=== PATIENT | female | born 1930 | race African-American/Black ===

== ENCOUNTER 2017-02-27 11:34 | Emergency (ER) | payer MEDICARE, OTHER ==
[~2017-02-27] VITALS: Ht 157.5 cm; Wt 78.0 kg
[~2017-02-27 11:34] MED LIST: AMLO-512 PO; ASCO500 PO; ASPI-556 PO; CARV3 PO; CHL25 PO; CLOP75 PO; LOSA50TA37 PO; MULT1TAB70 PO; RALO60 PO; VITAD1000 PO; [UNRECOGNIZED DRUG - CODE] PO
[2017-02-27] MEDS ORDERED: CILO100T PO (11:58)
[2017-02-27 12:19] LABS: BASOPHILS # (AUTO) 0.02 K/uL (0.00-0.20); BASOPHILS % (AUTO) 0.8 % (0.0-2.0); EOSINOPHILS # (AUTO) 0.05 K/uL (0.00-0.70); EOSINOPHILS % (AUTO) 1.75 % (1.0-6.0); HEMATOCRIT 34.3 % (36-46); HEMOGLOBIN 11.2 g/dL (12.0-16.0); LYMPHOCYTES # (AUTO) 1.4 K/uL (1.0-4.8); LYMPHOCYTES % (AUTO) 47.9 % (22.0-44.0); MEAN CORPUSCULAR HEMOGLOBIN 27.9 pg (26.0-34.0); MEAN CORPUSCULAR HGB CONC 32.8 G/dL (31.0-37.0); MEAN CORPUSCULAR VOLUME 85 fL (80-100); MONOCYTES # (AUTO) 0.3 K/uL (0.1-1.0); MONOCYTES % (AUTO) 10.7 % (2.0-9.0); NEUTROPHILS # (AUTO) 1.1 K/uL (1.8-7.7); NEUTROPHILS % (AUTO) 38.8 % (40.0-70.0); PLATELET COUNT (AUTO) 141 K/uL (150-450); RED BLOOD CELL COUNT(AUTO) 4.02 MIL/uL (4.00-5.20); RED CELL DISTRIBUTION WIDTH 14.8 % (11.5-14.5); WHITE BLOOD COUNT (AUTO) 2.8 K/uL (4.5-11.0)
[2017-02-27 12:31] LABS: ANION GAP 11 mmol/L (8-16); CALCIUM, TOTAL 8.4 mg/dL (8.8-10.5); CARBON DIOXIDE 27 mmol/L (22-29); CHLORIDE 108 mmol/L (98-107); CREATININE 0.79 mg/dL (0.60-1.30); GLOMERULAR FILTR. RATE CALC > 60 mL/min (>60); POTASSIUM 3.5 mmol/L (3.5-5.1); SODIUM SERUM 146 mmol/L (136-145); UREA NITROGEN, BLOOD 16 mg/dL (7-18)
[2017-02-27 12:36] LABS: ALANINE AMINOTRANSFERASE 14 U/L (12-78); ASPARTATE AMINOTRANSFERASE 19 U/L (15-37); BILIRUBIN,TOTAL 0.3 mg/dL (0.1-1.0); TOTAL PROTEIN, SERUM 6.5 g/dL (6.4-8.2)
[2017-02-27 12:38] LABS: RBC MORPHOLOGY COMMENT ABNORMAL RBC MORPH
[2017-02-27 12:53] LABS: B-TYPE NATRIURETIC PEPTIDE 38 pg/mL (0-100)
[2017-02-27 13:50] LABS: GLUCOSE, URINE (UA) NEGATIVE (NEGATIVE); KETONES,URINE NEGATIVE (NEGATIVE); LEUKOCYTE ESTERASE ,URINE NEGATIVE (NEGATIVE); OCCULT BLOOD,URINE NEGATIVE (NEGATIVE); PH,URINE 5.5 (5.0-8.0); PROTEIN,URINE POS 1+ (NEGATIVE)
[2017-02-27 14:02] LABS: ADD UA MICROSCOPIC YES; APPEARANCE,URINE HAZY (CLEAR)
[2017-02-27 14:04] LABS: RBC,URINE None Seen /HPF (0-2); SQUAMOUS EPITHELIAL CELL,UR Moderate /LPF (None Seen); WBC,URINE None Seen /HPF (0-5)
[2017-02-27 14:11] VITALS: BP 152/67
== END 2017-02-27 14:32 | disposition home or self-care (01) ==
LOC: EMS 11:36
DX: R55 Syncope and collapse (principal); G45.9 Transient cerebral ischemic attack, unspecified; E86.0 Dehydration; H70.92 Unspecified mastoiditis, left ear; I10 Essential (primary) hypertension; Z88.8 Allergy status to other drugs, medicaments and biological substances; Z79.82 Long term (current) use of aspirin; Z87.891 Personal history of nicotine dependence
CPT/HCPCS: 70450; 93005; 99285; 99406

== ENCOUNTER 2017-04-20 09:19 | Emergency (ER) | payer MEDICARE, OTHER ==
[~2017-04-20] VITALS: Ht 165.1 cm; Wt 75.5 kg
[~2017-04-20 09:19] MED LIST changes: +CILO100T PO
[2017-04-20] MEDS ORDERED: SILVER SULFADIAZINE 1% 25 GM CREAM TP ONE (12:30)
[2017-04-20] MEDS ORDERED: TraMADol HCL 50 MG TABLET PO ONE (12:30)
[2017-04-20 13:30] VITALS: BP 132/86
== END 2017-04-20 13:50 | disposition home or self-care (01) ==
LOC: EMS 09:21
DX: T21.25XA Burn of second degree of buttock, initial encounter (principal); I10 Essential (primary) hypertension; Z88.8 Allergy status to other drugs, medicaments and biological substances; Z87.891 Personal history of nicotine dependence; X08.8XXA Exposure to other specified smoke, fire and flames, initial encounter; Y93.89 Activity, other specified; Y92.89 Other specified places as the place of occurrence of the external cause; Y99.8 Other external cause status
CPT/HCPCS: 16020; 99284

== ENCOUNTER → 2017-05-02 | Outpatient (CLI) | payer MEDICARE, OTHER ==
[~2017-05-02] VITALS: Ht 166.4 cm; Wt 76.6 kg
[~2017-05-02] MED LIST changes: +ACET325T47 PO; +BACL10TA PO; +COLL30OI TP; +LIDO35.44 TP; +MOME13HF IH
[2017-05-02 08:00] VITALS: BP 143/65
== END | disposition home or self-care (01) ==
LOC: HBOWC 07:13
PROVIDERS: ATTEND Emergency Medicine
DX: T21.25XD Burn of second degree of buttock, subsequent encounter (principal); S31.829D Unspecified open wound of left buttock, subsequent encounter; E11.52 Type 2 diabetes mellitus with diabetic peripheral angiopathy with gangrene; I10 Essential (primary) hypertension; J44.9 Chronic obstructive pulmonary disease, unspecified; I25.2 Old myocardial infarction; Z85.3 Personal history of malignant neoplasm of breast; Z86.73 Personal history of transient ischemic attack (TIA), and cerebral infarction without residual deficits; Z98.62 Peripheral vascular angioplasty status; Z89.422 Acquired absence of other left toe(s); X58.XXXD Exposure to other specified factors, subsequent encounter; X08.8XXD Exposure to other specified smoke, fire and flames, subsequent encounter
CPT/HCPCS: 87070; 87205; 97597

== ENCOUNTER → 2017-05-10 | Outpatient (CLI) | payer MEDICARE, OTHER ==
[~2017-05-10] MED LIST changes: +LIDOCAINE HCL 2% 5 ML JELLY TP ONE; -MULT1TAB70 PO
[2017-05-10 08:44] VITALS: BP 151/78
== END | disposition home or self-care (01) ==
LOC: HBOWC 07:37
PROVIDERS: ATTEND Emergency Medicine
DX: T21.25XD Burn of second degree of buttock, subsequent encounter (principal); S31.829D Unspecified open wound of left buttock, subsequent encounter; T31.0 Burns involving less than 10% of body surface; E11.40 Type 2 diabetes mellitus with diabetic neuropathy, unspecified; J44.9 Chronic obstructive pulmonary disease, unspecified; I10 Essential (primary) hypertension; I25.2 Old myocardial infarction; E11.52 Type 2 diabetes mellitus with diabetic peripheral angiopathy with gangrene; Z85.3 Personal history of malignant neoplasm of breast; Z86.73 Personal history of transient ischemic attack (TIA), and cerebral infarction without residual deficits; Z87.891 Personal history of nicotine dependence; Z89.422 Acquired absence of other left toe(s); X08.8XXD Exposure to other specified smoke, fire and flames, subsequent encounter
CPT/HCPCS: 97597

== ENCOUNTER → 2017-05-24 | Outpatient (CLI) | payer MEDICARE, OTHER ==
[~2017-05-24] MED LIST changes: -LIDOCAINE HCL 2% 5 ML JELLY TP ONE
[2017-05-24 08:32] VITALS: BP 160/80
== END | disposition home or self-care (01) ==
LOC: HBOWC 07:10
PROVIDERS: ATTEND Emergency Medicine
DX: T21.25XD Burn of second degree of buttock, subsequent encounter (principal); S31.829D Unspecified open wound of left buttock, subsequent encounter; T31.0 Burns involving less than 10% of body surface; E11.40 Type 2 diabetes mellitus with diabetic neuropathy, unspecified; E11.52 Type 2 diabetes mellitus with diabetic peripheral angiopathy with gangrene; J44.9 Chronic obstructive pulmonary disease, unspecified; I10 Essential (primary) hypertension; I25.2 Old myocardial infarction; Z85.3 Personal history of malignant neoplasm of breast; Z87.891 Personal history of nicotine dependence; Z86.73 Personal history of transient ischemic attack (TIA), and cerebral infarction without residual deficits; Z88.8 Allergy status to other drugs, medicaments and biological substances; Z89.422 Acquired absence of other left toe(s); X08.8XXD Exposure to other specified smoke, fire and flames, subsequent encounter
CPT/HCPCS: 97597

== ENCOUNTER → 2017-06-07 | Outpatient (CLI) | payer MEDICARE, OTHER ==
[2017-06-07 08:36] VITALS: BP 153/102
== END | disposition home or self-care (01) ==
LOC: HBOWC 07:26
PROVIDERS: ATTEND Emergency Medicine
DX: T21.25XD Burn of second degree of buttock, subsequent encounter (principal); T31.0 Burns involving less than 10% of body surface; E11.40 Type 2 diabetes mellitus with diabetic neuropathy, unspecified; J44.9 Chronic obstructive pulmonary disease, unspecified; I10 Essential (primary) hypertension; I25.2 Old myocardial infarction; E11.52 Type 2 diabetes mellitus with diabetic peripheral angiopathy with gangrene; Z88.8 Allergy status to other drugs, medicaments and biological substances; Z85.3 Personal history of malignant neoplasm of breast; Z87.891 Personal history of nicotine dependence; Z86.73 Personal history of transient ischemic attack (TIA), and cerebral infarction without residual deficits; Z89.422 Acquired absence of other left toe(s); X08.8XXD Exposure to other specified smoke, fire and flames, subsequent encounter

== ENCOUNTER 2017-09-13 00:20 | Inpatient (IN) | payer MEDICARE, OTHER ==
[~2017-09-13] VITALS: Ht 165.1 cm; Wt 75.0 kg
[2017-09-13] MEDS ORDERED: SPIR25 PO (00:34)
[2017-09-13 01:08] LABS: GLUCOSE,POINT OF CARE 93 MG/DL (70-110)
[2017-09-13 01:21] LABS: BASOPHILS % (AUTO) 0.6 % (0.0-2.0); EOSINOPHILS % (AUTO) 1.8 % (1.0-6.0); HEMATOCRIT 39.5 % (36-46); HEMOGLOBIN 13.2 g/dL (12.0-16.0); LYMPHOCYTES # (AUTO) 1.8 K/uL (1.0-4.8); LYMPHOCYTES % (AUTO) 36.5 % (22.0-44.0); MEAN CORPUSCULAR HEMOGLOBIN 28.4 pg (26.0-34.0); MEAN CORPUSCULAR HGB CONC 33.4 G/dL (31.0-37.0); MEAN CORPUSCULAR VOLUME 85 fL (80-100); MONOCYTES # (AUTO) 0.4 K/uL (0.1-1.0); NEUTROPHILS # (AUTO) 2.6 K/uL (1.8-7.7); NEUTROPHILS % (AUTO) 52.1 % (40.0-70.0); PLATELET COUNT (AUTO) 163 K/uL (150-450); RED BLOOD CELL COUNT(AUTO) 4.63 MIL/uL (4.00-5.20); RED CELL DISTRIBUTION WIDTH 14.3 % (11.5-14.5)
[2017-09-13 01:36] LABS: PROTHROMBIN TIME 10.1 SEC (9.4-11.6)
[2017-09-13 01:43] LABS: B-TYPE NATRIURETIC PEPTIDE 59 pg/mL (0-100)
[2017-09-13 02:12] LABS: ALANINE AMINOTRANSFERASE 24 U/L (12-78); ALBUMIN 3.5 g/dL (3.4-5.0); ANION GAP 11 mmol/L (8-16); ASPARTATE AMINOTRANSFERASE 20 U/L (15-37); BILIRUBIN,TOTAL 0.3 mg/dL (0.1-1.0); CALCIUM, TOTAL 8.7 mg/dL (8.8-10.5); CARBON DIOXIDE 28 mmol/L (22-29); CHLORIDE 102 mmol/L (98-107); CREATINE KINASE, TOTAL 263 U/L (26-192); CREATININE 1.05 mg/dL (0.60-1.30); GLOMERULAR FILTR. RATE CALC 60 mL/min (>60); SODIUM SERUM 141 mmol/L (136-145); TOTAL PROTEIN, SERUM 6.9 g/dL (6.4-8.2); UREA NITROGEN, BLOOD 17 mg/dL (7-18)
[2017-09-13] MEDS ORDERED: DILTIAZEM HCL 5 MG/ML 5 ML VIAL IVP ONE (02:15)
[2017-09-13] MEDS ORDERED: DIGOXIN 250 MCG/ML 2 ML AMP IVP ONE (02:15)
[2017-09-13 02:16] LABS: POTASSIUM 2.7 mmol/L (3.5-5.1)
[2017-09-13] MEDS ORDERED: POTASSIUM CHLORIDE 10% 40 MEQ/30 ML LIQUID UDCUP PO SCH (02:45)
[2017-09-13] MEDS ORDERED: POTASSIUM CHL 10 MEQ/WATER 50 ML IV ONE (02:45)
[2017-09-13] MEDS ORDERED: ONDANSETRON HCL 4 MG/2 ML VIAL IVP PRN ×2 (03:00→03:45)
[2017-09-13] MEDS ORDERED: 0.9% SODIUM CHLORIDE 10 ML SYRINGE IVP PRN (03:00)
[2017-09-13] MEDS ORDERED: ACETAMINOPHEN 325 MG TABLET PO PRN ×2 (03:00→03:45)
[2017-09-13 03:40] LABS: APPEARANCE,URINE CLOUDY (CLEAR); GLUCOSE, URINE (UA) NEGATIVE (NEGATIVE); KETONES,URINE NEGATIVE (NEGATIVE); LEUKOCYTE ESTERASE ,URINE NEGATIVE (NEGATIVE); OCCULT BLOOD,URINE NEGATIVE (NEGATIVE); PROTEIN,URINE NEGATIVE (NEGATIVE)
[2017-09-13 03:43] LABS: ADD UA MICROSCOPIC NO
[2017-09-13] MEDS ORDERED: MAGNESIUM OXIDE 400 MG TABLET PO PRN (03:45)
[2017-09-13] MEDS ORDERED: IPRATROPIUM BROMIDE 0.5 MG/2.5 ML NEB SOLUTION NEB PRN (03:45)
[2017-09-13] MEDS ORDERED: POTASSIUM CHLORIDE 20 MEQ ER TABLET PO PRN ×2 (03:45)
[2017-09-13] MEDS ORDERED: ALBUTEROL SULFATE 2.5 MG/0.5 ML NEB SOLUTION NEB PRN (03:45)
[2017-09-13] MEDS ORDERED: ZOLPIDEM TARTRATE 5 MG TABLET PO PRN (03:45)
[2017-09-13] MEDS ORDERED: POTASSIUM CHL 10 MEQ/WATER 50 ML IV PRN (03:45)
[2017-09-13] MEDS ORDERED: MAGNESIUM SULFATE 4 GM/WATER 100 ML IV PRN (03:45)
[2017-09-13] MEDS ORDERED: MAGNESIUM SULFATE 2 GM in DEXTROSE 5%-WATER 50 ML IV PRN (03:45)
[2017-09-13] MEDS ORDERED: INFLUENZA VIRUS VACCINE QVS 2017-18 (3YR+)/PF 60 MCG/0.5 ML SYRINGE IM ONE (05:00)
[2017-09-13 05:27] VITALS: BP 156/76
[2017-09-13] MEDS: CILOSTAZOL 100 MG TABLET PO SCH ×2 (06:30→16:04)
[2017-09-13 07:31] VITALS: BP 142/69
[2017-09-13] MEDS: OxyCODONE HCL/ACETAMINOPHEN 5-325 MG TABLET PO PRN (08:30)
[2017-09-13 08:34] LABS: HEMATOCRIT 38.2 % (36-46); HEMOGLOBIN 12.7 g/dL (12.0-16.0); MEAN CORPUSCULAR HEMOGLOBIN 28.5 pg (26.0-34.0); MEAN CORPUSCULAR HGB CONC 33.2 G/dL (31.0-37.0); MEAN CORPUSCULAR VOLUME 86 fL (80-100); RED BLOOD CELL COUNT(AUTO) 4.45 MIL/uL (4.00-5.20); RED CELL DISTRIBUTION WIDTH 14.3 % (11.5-14.5)
[2017-09-13 08:38] LABS: WHITE BLOOD COUNT (AUTO) 5.3 K/uL (4.5-11.0)
[2017-09-13 08:40] LABS: ANION GAP 6 mmol/L (8-16); CALCIUM, TOTAL 8.7 mg/dL (8.8-10.5); CARBON DIOXIDE 30 mmol/L (22-29); CHLORIDE 106 mmol/L (98-107); CREATININE 0.88 mg/dL (0.60-1.30); GLOMERULAR FILTR. RATE CALC > 60 mL/min (>60); POTASSIUM 4.8 mmol/L (3.5-5.1); SODIUM SERUM 142 mmol/L (136-145); UREA NITROGEN, BLOOD 14 mg/dL (7-18)
[2017-09-13] MEDS: SPIRONOLACTONE 25 MG TABLET PO SCH ×2 (08:52→20:09)
[2017-09-13] MEDS: CARVEDILOL 3.125 MG TABLET PO SCH ×2 (08:53→20:09)
[2017-09-13] MEDS: RALOXIFENE HCL 60 MG TABLET PO SCH (08:55)
[2017-09-13] MEDS: LOSARTAN POTASSIUM 50 MG TABLET PO SCH (08:55)
[2017-09-13] MEDS: CHLORTHALIDONE 25 MG TABLET PO SCH (08:56)
[2017-09-13] MEDS: CALCIUM OYSTER SHELL 250 MG-VIT D3 125 UNITS TABLET PO SCH (08:56)
[2017-09-13] MEDS: BACLOFEN 10 MG TABLET PO SCH ×3 (08:56→20:09)
[2017-09-13] MEDS: PANTOPRAZOLE SODIUM 40 MG DR TABLET PO SCH (08:57)
[2017-09-13] MEDS ORDERED: ASPIRIN 81 MG EC TABLET PO SCH (09:00)
[2017-09-13] MEDS ORDERED: HEPARIN SODIUM,PORCINE 5,000 UNITS/ML VIAL SQ SCH (09:00)
[2017-09-13 09:23] LABS: PLATELET COUNT (AUTO) 133 K/uL (150-450)
[2017-09-13 09:25] LABS: BAND NEUTROPHILS % (MANUAL) 3 % (1-5); LYMPHOCYTES % (MANUAL) 51 % (22-44); RBC MORPHOLOGY COMMENT NORMAL RBC MORPH; TOTAL CELLS COUNTED 100
[2017-09-13] MEDS: AmLODIPine BESYLATE 10 MG TABLET PO SCH (10:39)
[2017-09-13 10:46] VITALS: BP 131/60
[2017-09-13 15:28] VITALS: BP 127/58
[2017-09-13 19:12] VITALS: BP 150/77
[2017-09-13] MEDS: APIXABAN 2.5 MG TABLET PO SCH (21:00)
[2017-09-13 23:58] VITALS: BP 150/63
[2017-09-14 04:01] VITALS: BP 142/66
[2017-09-14] MEDS: CILOSTAZOL 100 MG TABLET PO SCH (06:08)
[2017-09-14 06:10] LABS: HEMOGLOBIN A1C 6.5 % (4.5-6.2)
[2017-09-14 06:30] LABS: ALANINE AMINOTRANSFERASE 23 U/L (12-78); ALBUMIN 3.2 g/dL (3.4-5.0); ANION GAP 8 mmol/L (8-16); ASPARTATE AMINOTRANSFERASE 33 U/L (15-37); BILIRUBIN,TOTAL 0.6 mg/dL (0.1-1.0); CARBON DIOXIDE 26 mmol/L (22-29); CHLORIDE 104 mmol/L (98-107); CREATININE 0.84 mg/dL (0.60-1.30); GLOMERULAR FILTR. RATE CALC > 60 mL/min (>60); PHOSPHORUS 4.6 mg/dL (2.5-4.9); POTASSIUM 5.3 mmol/L (3.5-5.1); SODIUM SERUM 138 mmol/L (136-145); TOTAL PROTEIN, SERUM 6.9 g/dL (6.4-8.2); UREA NITROGEN, BLOOD 17 mg/dL (7-18)
[2017-09-14 07:00] VITALS: BP 134/77
[2017-09-14 07:12] LABS: BASOPHILS # (AUTO) 0.03 K/uL (0.00-0.20); BASOPHILS % (AUTO) 0.7 % (0.0-2.0); EOSINOPHILS # (AUTO) 0.07 K/uL (0.00-0.70); EOSINOPHILS % (AUTO) 1.43 % (1.0-6.0); HEMATOCRIT 37.2 % (36-46); HEMOGLOBIN 12.3 g/dL (12.0-16.0); LYMPHOCYTES # (AUTO) 1.8 K/uL (1.0-4.8); LYMPHOCYTES % (AUTO) 37.8 % (22.0-44.0); MEAN CORPUSCULAR HEMOGLOBIN 28.2 pg (26.0-34.0); MEAN CORPUSCULAR VOLUME 85 fL (80-100); MONOCYTES # (AUTO) 0.4 K/uL (0.1-1.0); MONOCYTES % (AUTO) 9.2 % (2.0-9.0); NEUTROPHILS # (AUTO) 2.4 K/uL (1.8-7.7); NEUTROPHILS % (AUTO) 50.9 % (40.0-70.0); PLATELET COUNT (AUTO) 150 K/uL (150-450); RED BLOOD CELL COUNT(AUTO) 4.36 MIL/uL (4.00-5.20); WHITE BLOOD COUNT (AUTO) 4.7 K/uL (4.5-11.0)
[2017-09-14 07:13] LABS: RBC MORPHOLOGY COMMENT NORMAL RBC MORPH
[2017-09-14] MEDS: BACLOFEN 10 MG TABLET PO SCH (09:05)
[2017-09-14] MEDS: APIXABAN 2.5 MG TABLET PO SCH (09:05)
[2017-09-14] MEDS: PANTOPRAZOLE SODIUM 40 MG DR TABLET PO SCH (09:06)
[2017-09-14] MEDS: CARVEDILOL 3.125 MG TABLET PO SCH (09:06)
[2017-09-14] MEDS: SPIRONOLACTONE 25 MG TABLET PO SCH (09:06)
[2017-09-14] MEDS: CALCIUM OYSTER SHELL 250 MG-VIT D3 125 UNITS TABLET PO SCH (09:07)
[2017-09-14] MEDS: RALOXIFENE HCL 60 MG TABLET PO SCH (09:07)
[2017-09-14] MEDS: CHLORTHALIDONE 25 MG TABLET PO SCH (09:07)
[2017-09-14] MEDS: OxyCODONE HCL/ACETAMINOPHEN 5-325 MG TABLET PO PRN (09:25)
[2017-09-14] MEDS: LOSARTAN POTASSIUM 50 MG TABLET PO SCH (10:33)
[2017-09-14] MEDS: AmLODIPine BESYLATE 10 MG TABLET PO SCH (10:33)
[2017-09-14 11:41] VITALS: BP 144/72
[2017-09-14] MEDS ORDERED: APIX2.5T PO (16:25)
[2017-09-14] MEDS ORDERED: ATOR20TA86 PO (16:25)
[2017-09-14] MEDS ORDERED: ASPI-556 PO (17:11)
[2017-09-14] MEDS ORDERED: ATORVASTATIN CALCIUM 20 MG TABLET PO SCH (21:00)
== END 2017-09-14 17:40 | disposition home or self-care (01) | DRG 312 ==
LOC: EMS 00:22 → 5N 03:07
PROVIDERS: ADMIT Internal Medicine; ATTEND Internal Medicine
DX: R55 Syncope and collapse (principal); I11.0 Hypertensive heart disease with heart failure; I50.9 Heart failure, unspecified; I48.0 Paroxysmal atrial fibrillation; J44.9 Chronic obstructive pulmonary disease, unspecified; I73.9 Peripheral vascular disease, unspecified; I25.10 Atherosclerotic heart disease of native coronary artery without angina pectoris; M81.0 Age-related osteoporosis without current pathological fracture; T50.2X5A Adverse effect of carbonic-anhydrase inhibitors, benzothiadiazides and other diuretics, initial encounter; E87.6 Hypokalemia; K21.9 Gastro-esophageal reflux disease without esophagitis; Z86.73 Personal history of transient ischemic attack (TIA), and cerebral infarction without residual deficits; Z88.8 Allergy status to other drugs, medicaments and biological substances; Z79.899 Other long term (current) drug therapy; Z86.718 Personal history of other venous thrombosis and embolism; Z85.3 Personal history of malignant neoplasm of breast; Z90.11 Acquired absence of right breast and nipple; Z87.891 Personal history of nicotine dependence; Z90.49 Acquired absence of other specified parts of digestive tract; I25.2 Old myocardial infarction; Z89.422 Acquired absence of other left toe(s); Z82.5 Family history of asthma and other chronic lower respiratory diseases; Z84.1 Family history of disorders of kidney and ureter; Y92.89 Other specified places as the place of occurrence of the external cause; Y93.89 Activity, other specified; Y99.8 Other external cause status
CPT/HCPCS: 70450; 82962; 83036; 83735; 84100; 93005; 93306; 96361; 96374; 96375; 97162; 97165; 97530; 99291; J1160; J1644; J3480; J3490